=== PATIENT | female | born 1955 | race Caucasian/White ===

== ENCOUNTER → 2018-05-26 | Outpatient (CLI) | payer MEDICARE ==
--- NOTE | 2018-05-26 15:40 | BD ---
EXAMINATION TYPE: Axial Bone Density DATE OF EXAM: 05/26/2018 CLINICAL HISTORY: Height: 62 inches Weight: 179 FRAX RISK QUESTIONS: Alcohol (3 or more units per day): no Family History (Parent hip fracture): no Glucocorticoids (More than 3mos): no (Ex: prednisone, prednisolone, methylprednisolone, dexamethasone, and hydrocortisone). History of Fracture in Adulthood: no Secondary Osteoporosis: 1. Type 1 Diabetes: no 2. Hyperthyroidism: no 3. Menopause before 45: no 4. Malnutrition: no 5. Chronic liver disease: no Rheumatoid Arthritis: no Current Tobacco Use: no RISK FACTORS HISTORY OF: Family History of Osteoporosis: unsure Active: yes Diet low in dairy products/other sources of calcium: at least one serving a day Postmenopausal woman: yes Take estrogen and/or progesterone medications: no Lost more than 2 inches in height since high school: no Frequent falls: no Poor Health: no Hyperparathyroidism: no Adrenal Insufficiency: no MEDICATIONS: Prednisone or other steroids: no Thyroid Medications: no Osteoporosis Medications: no Additional Medications: blood pressure meds, B12, Estroven Additional History: EXAM MEASUREMENTS: Bone mineral densitometry was performed using the [employer] System. Bone mineral density as measured about the Lumbar spine is: ----- L1-L4(G/cm2): 1.226 T Score Values are as follows: ----- L2: 0.0 ----- L3: 0.6 ----- L4: 0.2 ----- L1-L4: 0.4 Bone mineral density BASELINE Bone mineral density about the R hip (g/cm2): 0.923 Bone mineral density about the L hip (g/cm2): 0.815 T Score values are as follows: -----R Neck: -0.8 -----L Neck: -1.6 -----R Total: -0.8 -----L Total: -0.9 Bone mineral density BASELINE IMPRESSION: No evidence for osteoporosis or osteopenia. NOTE: T-SCORE=SD OF THE YOUNG ADULT MEAN.
== END | disposition home or self-care (01) ==
LOC: RADBDWWP 13:04
PROVIDERS: ATTEND Internal Medicine
DX: Z13.820 Encounter for screening for osteoporosis (principal); Z78.0 Asymptomatic menopausal state
CPT/HCPCS: 77080

== ENCOUNTER → 2018-05-27 | Outpatient (CLI) | payer MEDICARE ==
--- NOTE | 2018-05-28 11:12 | MM ---
Reason for exam: screening (asymptomatic). Last mammogram was performed 9 years and 10 months ago. History: Patient is postmenopausal. Physical Findings: A clinical breast exam by your physician is recommended on an annual basis and results should be correlated with mammographic findings. MG Screening Mammo w CAD Bilateral CC and MLO view(s) were taken. Prior study comparison: August 10, 2008, bilateral digital screening mammogram. There are scattered fibroglandular densities. Benign appearing round bilateral calcifications. There is no discrete abnormality. ASSESSMENT: Benign, BI-RAD 2 RECOMMENDATION: Routine screening mammogram of both breasts in 1 year.
== END | disposition home or self-care (01) ==
LOC: RADMAMWWP 16:31
PROVIDERS: ATTEND Internal Medicine
DX: Z12.31 Encounter for screening mammogram for malignant neoplasm of breast (principal)
CPT/HCPCS: 77067

== ENCOUNTER 2019-07-19 06:28 | Day surgery (SDC) | payer MEDICARE ==
[2019-07-13 10:01] VITALS: BMI 32.0
--- NOTE | 2019-07-18 17:47 | P.HPOB ---
History of Present Illness H&P Date: 07/18/19 Chief Complaint: MASHA-3 This is a 64 y.o. female, 2, para 2, who presents for loop electrocautery excision procedure with colposcopy due to MASHA-3 found on colposcopy performed on 06/14/2019. Patient initially had a abnormal Pap smear on 05/09/2019 that showed atypical cells of undetermined significance. High- risk HPV showed positive. Colposcopy was performed and showed MASHA-2 and MASHA-3. She has consented to the above noted procedure for definitive treatment. Her previous Pap smear prior to this one was at least 13 years ago. Obstetrical history: . History of 2 vaginal deliveries. Gynecologic history: She is and not currently sexually active. No history of sexual transmitted diseases. 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 Review of Systems Constitutional: Denies chills, Denies fever Eyes: denies blurred vision, denies pain Cardiovascular: Denies chest pain, Denies shortness of breath Respiratory: Denies cough Gastrointestinal: Denies abdominal pain, Denies diarrhea, Denies nausea, Denies vomiting Genitourinary: Denies dysuria, Denies hematuria Menstruation: Reports postmenopausal Musculoskeletal: Denies myalgias Integumentary: Denies pruritus, Denies rash Neurological: Denies numbness, Denies weakness Psychiatric: Denies anxiety, Denies depression Past Medical History Past Medical History: Eye Disorder, GERD/Reflux, Hypertension, Vascular Disorder (Peripheral vascular disease) Additional Past Medical History / Comment(s): glaucoma; arthritis, history of migraine headaches History of Any Multi-Drug Resistant Organisms: None Reported Past Surgical History: Tubal Ligation Additional Past Surgical History / Comment(s): yisel cataract surgery. surgery for glaucoma Past Anesthesia/Blood Transfusion Reactions: Motion Sickness Past Psychological History: No Psychological Hx Reported Smoking Status: Never smoker Past Alcohol Use History: Occasional Past Drug Use History: None Reported - Past Family History Father Family Medical History: Cancer Additional Family Medical History / Comment(s): bladder Sister(s) Family Medical History: Cancer Additional Family Medical History / Comment(s): breast Mother Additional Family Medical History / Comment(s): blood clot to intestines Medications and Allergies Home Medications Medication Instructions Recorded Confirmed Type Aspirin [Adult Low Dose Aspirin EC] 81 mg PO DAILY 07/13/19 07/13/19 History Bimatoprost [Lumigan .01% Ophth 1 drop BOTH EYES HS 07/13/19 07/13/19 History Soln] Brimonidine Tartrate/Timolol 1 drop BOTH EYES BID 07/13/19 07/13/19 History [Combigan 0.2%-0.5% Eye Drops] Carvedilol [Coreg] 12.5 mg PO BID 07/13/19 07/13/19 History Cyanocobalamin (Vitamin B-12) 5,000 mcg PO DAILY 07/13/19 07/13/19 History [Vitamin B-12] Difluprednate [Durezol] 1 drop RIGHT EYE BID 07/13/19 07/13/19 History Lansoprazole 15 mg PO DAILY 07/13/19 07/13/19 History Lisinopril [Zestril] 20 mg PO DAILY 07/13/19 07/13/19 History Meloxicam 7.5 mg PO DAILY 07/13/19 07/13/19 History Multivitamins, Thera [Multivitamin 1 tab PO DAILY 07/13/19 07/13/19 History (formulary)] Nepafenac [Ilevro] 1 drop RIGHT EYE DAILY 07/13/19 07/13/19 History Sodium Chloride 5% Ophth Oint 1 applic BOTH EYES DAILY 07/13/19 07/13/19 History [Tiara 128] Allergies Allergy/AdvReac Type Severity Reaction Status Date / Time No Known Allergies Allergy Verified 07/13/19 09:47 Exam Osteopathic Statement: *. No significant issues noted on an osteopathic structural exam other than those noted in the History and Physical/Consult. 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 I have discussed the risks, benefits, and alternative therapies for the above- mentioned procedure and for both sedation/anesthesia as well as necessary blood products administration, if indicated, as they pertain to this patient. The patient has indicated her understanding and acceptance of the risks and procedures discussed.
[~2019-07-19 06:28] MED LIST: DEXAMETHASONE SOD PHOSPHATE 10 MG/ML 1 ML VIAL IV ONE; HYDROmorphone 0.5 MG/0.5 ML SYRINGE IVP PRN; LIDOCAINE 1% 20 ML VIAL (10MG/ML) FOR IV START INTRADERMA PRN; ONDANSETRON 4 MG/2 ML VIAL IVP ONE; Pre Op ABX Message 1 EACH MISC MISCELLANE ONE; SCOPOLAMINE 1.5MG/72HR PATCH TRANSDERM ONE
[2019-07-19 06:52] VITALS: RESP 16
[2019-07-19] MEDS: LACTATED RINGERS 1,000 ML IV SCH ×2 (06:54→07:28)
[2019-07-19] MEDS ORDERED: SUCCINYLCHOLINE CHLORIDE 100 MG/5 ML SYR IV ONE (07:25)
[2019-07-19] MEDS ORDERED: PROPOFOL 10 MG/ML 20 ML VIAL IV ONE (07:25)
[2019-07-19] MEDS ORDERED: MIDAZOLAM 2 MG/2 ML VIAL ONE (07:25)
[2019-07-19] MEDS ORDERED: LIDOCAINE 1% INJ 10MG/ML (20 ML MDV) ONE (07:25)
[2019-07-19] MEDS ORDERED: fentaNYL (PF) 50 MCG/ML 2 ML AMP ONE (07:25)
[2019-07-19] MEDS ORDERED: BUPIVACAINE (PF) 0.5% 30 ML VIAL SQ ONE (07:44)
[2019-07-19] MEDS ORDERED: LIDOCAINE 1%-EPI 1:100,000 20 ML VIAL SQ ONE (07:44)
[2019-07-19] MEDS ORDERED: FERRIC SUBSULFATE (MONSELS) JAR TOPICAL ONE (07:44)
[2019-07-19] MEDS ORDERED: ACETIC ACID 15 DROPS/ML DROPS MISCELLANE ONE (07:45)
--- NOTE | 2019-07-19 08:04 | P.OP ---
Date of Procedure: 07/19/19 Preoperative Diagnosis: MASHA 3 Postoperative Diagnosis: Same Procedure(s) Performed: Colposcopy with loop electrocautery excision procedure Anesthesia: IRISA Surgeon: Juana Waters Estimated Blood Loss (ml): 2 Pathology: other (#1-ectocervix with 12:00 white suture, 6:00 black suture, 3:00 separate piece; #2 endocervix) Condition: stable Disposition: same day Indications for Procedure: This is a 64 y.o. female, 2, para 2, who presents for loop electrocautery excision procedure with colposcopy due to MASHA-3 found on colposcopy performed on 06/14/2019. Patient initially had a abnormal Pap smear on 05/09/2019 that showed atypical cells of undetermined significance. High- risk HPV showed positive. Colposcopy was performed and showed MASHA-2 and MASHA-3. She has consented to the above noted procedure for definitive treatment. Her previous Pap smear prior to this one was at least 13 years ago. Operative Findings: Cervix is completely visualized. With acetic acid, some fine mosaicism was noted at approximately 10:00. Some necrosis of tissue is noted at the 4 to 5:00 border. With Lugol solution, a fairly large area of Lugol white was noted extending onto the vaginal richardson anteriorly. Description of Procedure: The patient was taken to the operating room where she is placed in the dorsal lithotomy position. She is prepped and draped in the normal sterile fashion. Her bladder is drained with a catheter and then removed. A coated bivalve speculum was then placed in the patient's vagina. Colposcopy was performed using a blue light. The above noted findings are made. Cervix is swabbed with 3% acetic acid. The above noted findings are made. Next the cervix is swabbed with Lugol solution. The above noted findings are made. Next the cervix was circumferentially injected with a 50-50 mixture of 1% lidocaine with epinephrine and half percent Marcaine. Approximately 8 mL are used using a spinal needle to circumferentially injected the cervix. Next the large loop was used to swipe from left to right using 35 W of cutting power. An additional piece was taken off the 3:00 border using a large loop and then another piece off of the 6:00 border using a large loop. Next a small loop was used to remove the endocervix. A ball-tipped cautery was then used to cauterize the bed left behind. Excellent hemostasis was noted. Next Monsel solution was applied. Again excellent hemostasis is noted. All sponge and needle counts are correct. The patient is then taken to recovery room in stable condition.
[2019-07-19 08:27] VITALS: TEMP 97.1
[2019-07-19 09:39] VITALS: BP 156/75; PULSE 61
== END 2019-07-19 10:03 | disposition home or self-care (01) ==
LOC: OR 06:28
PROVIDERS: ATTEND Obstetrics & Gynecology
DX: N87.1 Moderate cervical dysplasia (principal); H40.9 Unspecified glaucoma; K21.9 Gastro-esophageal reflux disease without esophagitis; I10 Essential (primary) hypertension; I73.9 Peripheral vascular disease, unspecified; Z98.42 Cataract extraction status, left eye; Z98.41 Cataract extraction status, right eye; Z80.3 Family history of malignant neoplasm of breast; Z80.52 Family history of malignant neoplasm of bladder; Z84.89 Family history of other specified conditions; Z79.82 Long term (current) use of aspirin; Z79.899 Other long term (current) drug therapy; Z98.51 Tubal ligation status
CPT/HCPCS: 88305; 88307; 57522; J2250; J1100; J2405; J2001; J3010; J0330; J2704